=== PATIENT | male | born 1980 | race Caucasian/White ===

== ENCOUNTER 2016-12-26 09:10 | Day surgery (SDC) | payer OTHER ==
[2016-12-25 14:42] VITALS: BMI 24.0
[2016-12-26 09:30] VITALS: TEMP 97.6
[2016-12-26] MEDS ORDERED: BACITRACIN 3.5 GM OPTHALMIC OINT TUBE ONE (11:04)
[2016-12-26] MEDS ORDERED: BSS (NA/CA/MG/K) BALANCED SALT SOLUTION OPHTH SOLN 15 ML BOTTLE ONE (11:04)
[2016-12-26] MEDS ORDERED: LIDOCAINE 1%/EPI 1:100000 (50 ML MULTI DOSE VIAL) ONE (11:06)
[2016-12-26] MEDS ORDERED: MIDAZOLAM HCL 2 MG/2 ML SINGLE DOSE VIAL ONE (11:20)
[2016-12-26] MEDS ORDERED: POVIDONE-IODINE 5% OPHTHALMIC PREP 30 ML SOLUTION OS ONE (11:28)
[2016-12-26] MEDS ORDERED: LIDOCAINE 1%/EPI 1:100000 (20 ML MULTI DOSE VIAL) INF ONE (11:31)
[2016-12-26] MEDS ORDERED: BSS (NA/CA/MG/K) BALANCED SALT SOLUTION OPHTH SOLN 15 ML BOTTLE OS ONE (11:32)
[2016-12-26] MEDS ORDERED: TOBRAMYCIN/DEXAMETHASONE OPHTH. OINTMENT 1 TUBE OS ONE (11:41)
[2016-12-26] MEDS ORDERED: ACETAMINOPHEN 325 MG TABLET (FP) ONE (12:16)
[2016-12-26 13:22] VITALS: BP 111/60; PULSE 60
--- NOTE | 2016-12-27 13:16 | OP ---
DATE OF OPERATION: 12/26/2016 SURGEON: Mt Deutsch MD PREOPERATIVE DIAGNOSIS: Chalazion, left upper lid. OPERATION: Chalazion excision from left upper lid. POSTOPERATIVE DIAGNOSIS: Chalazion, left upper lid. ANESTHESIA: Local. COMPLICATIONS: None. BLOOD LOSS: None. SPECIMEN: Chalazion. BRIEF HISTORY: The patient is a 36-year-old man with no significant past medical history who presented with chalazion to the left upper lid that was not resolving with conservative management. The patient expressed surgery of excision. Due to the patients significant sensitivity during the examination, we determined that excision would require some sedation and was scheduled in the operating room. DESCRIPTION OF PROCEDURE: The patient was brought to the operating room and prepped and draped in the usual sterile fashion. The chalazion was placed in a clamp. An incision was made, and the chalazion was drained without incident. The chalazion clamp was removed, and hemostasis was achieved with pressure. TobraDex ointment was placed in the eye. The patient was then transferred to the recovery room in stable condition and will follow up in one week. Tarik [id number] MTDD
--- NOTE | 2016-12-27 15:27 | PATH ---
Surgical Pathology Report Patient Name: KIM GOODSON [facility]. Rec. #: [id number] /Age/Gender: 1980 (Age: 36) / M Account: [id number] Location: [facility] SURGICAL Taken: 12/26/2016 Received: 12/26/2016 Reported: 12/27/2016 Physicians: Mt Deutsch M.D. Specimen(s) Received CHALAZION LEFT UPPER EYELID Clinical History Chalazion left upper eyelid Final Diagnosis UPPER EYELID, LEFT, EXCISION: ACUTE AND CHRONIC NON-NECROTIZING GRANULOMATOUS INFLAMMATION, COMPATIBLE WITH CHALAZION. Comment: No acid-fast bacilli are identified AFB stain. No fungal organisms are identified with GMS stain. Electronically Signed Fabian James M.D. Gross Description Received in formalin, labeled "chalazion left upper eyelid" is a 0.5 x 0.4 x 0.1 cm aggregate of hemphill possible soft tissue. The specimen is submitted in toto in one cassette. 12/26/201612/26/2016
== END 2016-12-26 13:00 | disposition home or self-care (01) ==
LOC: JASU-SURG 09:10
PROVIDERS: ATTEND Ophthalmology
PROC: 0HB1XZZ Excision of Face Skin, External Approach (ICD-10-PCS; principal; 2016-12-26 11:00)
DX: H00.14 Chalazion left upper eyelid (principal)
CPT/HCPCS: 88304-TC; 88312-TC